=== PATIENT | female | born 1995 | race Two or more races ===

== ENCOUNTER 2020-09-05 05:43 | Day surgery (SDC) | payer OTHER ==
[2020-09-05] VITALS (14 sets, daily range): BP systolic 93–135; BP diastolic 50–88
[~2020-09-05] VITALS: Ht 162.6 cm; Wt 67.1 kg
[2020-09-05] MEDS ORDERED: TESTOSTERO100 MG/1 M IM (06:40)
[2020-09-05] MEDS ORDERED: ceFAZolin sod 2 GM in NS 55 ML IVPB ONE (07:00)
[2020-09-05] MEDS ORDERED: Bacitracin Oint 15gm Tube TOPIC ONE (07:20)
[2020-09-05] MEDS ORDERED: Lidocaine 1% 10mg/ml/Epi 0.005mg/ml 30ml vial INJ ONE (07:21)
[2020-09-05] MEDS ORDERED: Dyna-Hex 2% Top Sol 2oz TOPIC ONE (07:21)
[2020-09-05] MEDS ORDERED: Bacitracin 50000 Units Vial ONE (07:21)
[2020-09-05] MEDS ORDERED: Bupivacaine 0.25% Inj 30ml INJ ONE (07:21)
[2020-09-05] MEDS ORDERED: Muri-Lube ONE (07:21)
--- NOTE | 2020-09-05 07:22 | Anethesia Preoperative Eval ---
Anesthesia Pre-op PMH/ROS General Date of Evaluation: Sep 05, 2020 Time of Evaluation: 11:23 Anesthesiologist: Anitha ASA Score: ASA 2 Mallampati Score Class I : Soft palate, uvula, fauces, pillars visible Class II: Soft palate, uvula, fauces visible Class III: Soft palate, base of uvula visible Class IV: Only hard plate visible Mallampati Classification: Class I Surgeon: Elmira Diagnosis: Gender Dysphoria Surgical Procedure: Bilateral Mastectomy with Nipple Graft Family History: no anesthesia problems Allergies: Coded Allergies: No Known Allergies (Unverified , 09/03/20) Medications: see eMAR Patient NPO?: Yes Past Medical History Gastrointestinal/Genitourinary: Reports: GERD Anesthesia Pre-op Phys. Exam Physician Exam Last Vital Signs Date Time Temp Pulse Resp B/P (MAP) Pulse Ox O2 Delivery O2 Flow Rate FiO2 09/05/20 06:34 97.5 70 18 124/88 100 Room Air Constitutional: NAD Neurologic: CN 2-12 intact Cardiovascular: RRR Respiratory: CTA Gastrointestinal: S/NT/ND Airway Exam Mallampati Score: Class I MO: full ROM: full Teeth: intact Anesthesia Pre-op A/P Labs Urine Test Test 09/05/20 06:10 Urine HCG, Qualitative Negative (NEGATIVE) Risk Assessment & Plan Assessment: ASA 2 Plan: GA, SED, GlideScope Status Change Before Surgery: No Pre-Antibiotics Dru Gram Ancef IV Given Within 1 Hr of Incision: Yes Time Given: 07:46 Jase Welsh MD Sep 05, 2020 07:22
[2020-09-05] MEDS ORDERED: Lidocaine 1% MPF 10mg/ml 5ml ONE (07:24)
[2020-09-05] MEDS ORDERED: Sodium Chloride 10ml vial INJ ONE (07:24)
--- NOTE | 2020-09-05 07:24 | Pre-Procedure Note/Attestation ---
Pre-Procedure Note/Attestation Complete Prior to Procedure Planned Procedure: bilateral Procedure Narrative: bilateral mastectomy and nipple areola reconstruction Indications for Procedure Pre-Operative Diagnosis: gender dysphoria Attestation I attest that I discussed the nature of the procedure; its benefits; risks and complications; and alternatives (and the risks and benefits of such a lternatives), prior to the procedure, with the patient (or the patient's legal food service sales representatives). I attest that, if there was a reasonable possibility of needing a blood transfusion, the patient (or the patient's legal food service sales representatives) was given the [facility] standardized written summary, pursuant to the Jovi Omero Blood Safety Act ([place] Health and Safety Code # 1645, as amended). I attest that I re-evaluated the patient just prior to the surgery and that there has been no change in the patient's H&P, except as documented below: Jose Antonio Ku MD Sep 05, 2020 07:24
[2020-09-05] MEDS ORDERED: fentaNYL 100 mcg/2 mL IV ONE ×2 (07:25→08:54)
[2020-09-05] MEDS ORDERED: Ketamine 500mg/10ml vial ONE (07:25)
[2020-09-05] MEDS ORDERED: Lidocaine 1% Plain 30 ml INJ ONE ×2 (07:27→09:11)
[2020-09-05] MEDS ORDERED: Metoclopramide 10mg/2ml Inj IVP PRN (07:30)
[2020-09-05] MEDS ORDERED: Sterile Water Irrig 1000ml IRRIG ONE (07:30)
[2020-09-05] MEDS ORDERED: HYDROcodone/Acetamin 7.5/325 tab ORAL PRN (07:30)
[2020-09-05] MEDS ORDERED: Hydromorphone 0.5mg/0.5ml inj IVP PRN (07:30)
[2020-09-05] MEDS ORDERED: Midazolam 2mg/2ml Inj IVP PRN (07:30)
[2020-09-05] MEDS ORDERED: Labetalol 5mg/ml 20ml vial IV PRN (07:30)
[2020-09-05] MEDS ORDERED: LR 1000ml ONE (07:30)
[2020-09-05] MEDS ORDERED: LORazepam Inj 2mg/ml 1ml IV PRN (07:30)
[2020-09-05] MEDS ORDERED: Ketorolac 30mg Inj IV PRN ×2 (07:30)
[2020-09-05] MEDS ORDERED: Atropine Sulfate 0.4mg/ml inj IVP PRN (07:30)
[2020-09-05] MEDS ORDERED: DiphenhydrAMINE 50mg/ml Inj IVP PRN (07:30)
[2020-09-05] MEDS ORDERED: HYDROcodone/Acetamin 5/325 tab ORAL PRN ×2 (07:30→11:15)
[2020-09-05] MEDS ORDERED: Meperidine 25mg/1ml Inj (FOR RIGORS ONLY) IV PRN (07:30)
[2020-09-05] MEDS ORDERED: NS Irrig 1000ml ONE (07:30)
[2020-09-05] MEDS ORDERED: Rocuronium Bromide 50mg/5ml Inj IV ONE (07:30)
[2020-09-05] MEDS ORDERED: oxyCODONE HCL/Acetaminophen 5/325mg ORAL PRN (07:30)
[2020-09-05] MEDS ORDERED: LR 1000ml 1,000 ML IVLG SCH (07:30)
[2020-09-05] MEDS ORDERED: Acetaminophen (Non formulary) 100 ML IV ONE (07:30)
[2020-09-05] MEDS ORDERED: propofoL 1,000mg/100ml IV ONE (07:30)
[2020-09-05] MEDS ORDERED: fentaNYL 100 mcg/2 mL IV PRN (07:30)
--- NOTE | 2020-09-05 11:04 | Discharge Instructions ---
Discharge Instructions Discharge Instructions Follow up with: Dr. Ku 09/11/20 Diet: regular Resume Normal Activity?: Yes - no lifting anything heavier than 10 lbs Activity: ambulate For Surgical Patients Dressing Care: keep dry and clean May shower: No - sponge bathe only For Congestive Heart Failure Reminder Report to your physician any weight gain of 5 pounds or more in one week. Jose Antonio Ku MD Sep 05, 2020 11:04
--- NOTE | 2020-09-05 11:04 | Operative Note - PDOC ---
Operative Note Operative Note Date of Operation/Procedure: Sep 05, 2020 Pre-op Diagnosis: gender dysphoria Procedure: bilateral mastectomy and nipple areola reconstruction Post-op Diagnosis: same as pre-op Surgeon: Carlie Anesthesiologist: Dennis Anesthesia: general Specimen: yes Complications: none Condition: stable Estimated Blood Loss: volume - 50 cc Drains: MAGEN Implant(s) used?: No Jose Antonio Ku MD Sep 05, 2020 11:04
--- NOTE | 2020-09-05 11:11 | Immediate Post-Op Evaluation ---
Immediate Post-Op Evalulation Immediate Post-Op Evalulation Procedure: Bilateral Mastectomy with Nipple Graft Date of Evaluation: Sep 05, 2020 Time of Evaluation: 11:23 IV Fluids: 1500 LR Blood Products: 0 Estimated Blood Loss: 30 Urinary Output: 0 Blood Pressure Systolic: 99 Blood Pressure Diastolic: 51 Pulse Rate: 79 Respiratory Rate: 16 O2 Sat by Pulse Oximetry: 99 Temperature (Fahrenheit): 97.8 Pain Score (1-10): 2 Nausea: No Vomiting: No Complications 0 Patient Status: awake, reacts, patent, extubated, none Hydration Status: adequate Dru Gram Ancef IV Given Within 1 Hr of Incision: Yes Time Given: 07:46 Jase Welsh MD Sep 05, 2020 11:11
--- NOTE | 2020-09-05 11:12 | 48 Hour Post Anesthesia Eval ---
Post Anesthesia Evaluation Procedure: Bilateral Mastectomy with Nipple Graft Date of Evaluation: Sep 05, 2020 Time of Evaluation: 13:32 Blood Pressure Systolic: 123 0: 81 Pulse Rate: 63 Respiratory Rate: 18 Temperature (Fahrenheit): 98 O2 Sat by Pulse Oximetry: 99 Airway: patent Nausea: No Vomiting: No Pain Intensity: 2 Hydration Status: adequate Cardiopulmonary Status: Stable Mental Status/LOC: patient returned to baseline Follow-up Care/Observations: 0 Post-Anesthesia Complications: 0 Follow-up care needed: ready to discharge Jase Welsh MD Sep 05, 2020 11:12
[2020-09-05] MEDS ORDERED: HYDROmorphone 1mg/ml Carpuject SUBQ PRN (11:15)
[2020-09-05] MEDS ORDERED: D5 1/2NS 1,000 ML IV SCH (11:15)
[2020-09-05] MEDS ORDERED: Tylenol #3 tab (300mg/30mg) ORAL PRN (11:15)
--- NOTE | 2020-09-05 12:30 | Operative Note - Dictated ---
DATE OF OPERATION: 09/05/2020 PREOPERATIVE DIAGNOSIS: Gender dysphoria. POSTOPERATIVE DIAGNOSIS: Gender dysphoria. PROCEDURE: 1. Bilateral mastectomy. 2. Bilateral nipple-areola reconstruction utilizing full-thickness grafts (each graft 2.5 x 2.5 cm). SURGEON: Jose Antonio Ku MD. ANESTHESIA: General. ESTIMATED BLOOD LOSS: 50 mL. SPECIMENS: 1. Right breast. 2. Left breast. DRAINS: A 15-Kazakh Erich x2. COMPLICATIONS: None. CONDITION: To recovery room stable. INDICATION FOR PROCEDURE: This is a very pleasant 24-year-old trans male who desires Top surgery as part of his transition. He has the appropriate letter for recommendation from his therapist and meets all WPATH criteria for Top surgery. I have discussed the risks, benefits, and alternatives to the procedure with him including but not limited to, bleeding, infection, scarring, nerve injury, asymmetry, contour deformity, hematoma, seroma, loss of nipple sensation, loss of nipple graft and need for additional surgery including revisions. I discussed the orientation of the incisions and the unpredictable nature of scarring. No guarantees were made regarding the outcome. All of his questions have been answered to the best of my ability. He verbalized understanding with everything that we discussed and wishes to proceed. DESCRIPTION OF PROCEDURE: The patient was identified in the preoperative holding area and marked in the standing position. He was then brought to the operating room where he was placed in the supine position on the operating room table with his arms extended on arm boards. All bony prominences were adequately padded. Sequential compression devices were placed and intravenous antibiotics were administered. After induction of anesthesia, the patient's chest was prepped and draped in sterile fashion. Starting on the left breast first, a redding measuring 2.5 cm in diameter was drawn centered around the nipple. Next, the subdermal plane within areolar marking was infiltrated with 3 mL of 1% lidocaine with epinephrine. I then used a 15-blade scalpel to incise the areolar marking and proceeded to harvest a full-thickness nipple areola graft. The graft was subsequently defatted using curved iris scissors, wrapped in wet gauze and placed on the back table. I then made the inframammary fold incision using a 10-blade scalpel and dissected down to the level of pectoralis major fascia. Afterwards I made the superior breast incision and dissected down to the level of Andre's fascia. Skin Rakes were used to retract the skin and a plane of dissection was created superiorly between the subcutaneous tissues and breast parenchyma. Afterward breast was then elevated off of the pectoralis major fascia proceeding from a medial to lateral direction. The specimen was passed off the table. Hemostasis was achieved and the wound was irrigated with saline, 4 mL of Tisseel was placed throughout the wound cavity. A 15-Kazakh Erich drain was then placed within the wound and brought out through a separate stab incision and secured using 2-0 silk suture. Skin mariella were then used to temporarily reapproximate the skin. I then shifted my attention to the contralateral side of the chest where the identical procedure was performed. The patient was then sat up on the operating room table to assess for symmetry and it appeared that he had very reasonable symmetry between the two sides of his chest. I then used a marking pen to draw the new location of the nipple areolar complex on each side of the chest and these markings were confirmed with direct measurements. The patient was then placed back in the supine position. On each side of the chest, the skin mariella were removed and wound closure was performed using interrupted 0 Vicryl suture for the Andre's fascia layer followed by interrupted 3-0 PDS suture for the deep dermal layer and then a running 3-0 Monocryl subcuticular suture to reapproximate the skin. At this point, I then resumed with the nipple areola reconstruction portion of the procedure. Starting on the left chest first, the francisco javier-areolar marking was incised using a 15-blade scalpel. The intervening skin within the marking was then de-epithelialized. I then brought out the full-thickness nipple areola graft and proceeded to inset it into the de-epithelialized area using a running 5-0 fast-absorbing suture. Afterwards several 2-0 silk suture ties were placed around the periphery of the graft. The skin graft bolster was fashioned and then secured into place directly on top of the nipple areola graft using the 2-0 silk sutures ties. I then shifted my attention to the contralateral side of the chest where the identical procedure was performed. Next 10 mL of 0.25% plain Marcaine were then injected into each of the chest incisions. Steri-Strips were placed on top of the surgical incisions followed by sterile dressings and the patient was then placed into a compressive chest wrap. He tolerated the procedure well and was sent to the recovery room in stable condition. All instrument, sharp, and sponge counts were correct at the conclusion of the case. Jose Antonio Ku M.D. DR: La JOB#: [id number] CC:
== END 2020-09-05 14:20 | disposition home or self-care (01) ==
LOC: SUR 05:43
DX: F64.9 Gender identity disorder, unspecified (principal); K21.9 Gastro-esophageal reflux disease without esophagitis
CPT/HCPCS: 19303; 19350; 81025; 94003; J0131; J0690; J1100; J1885; J2001; J2250; J2405; J2704; J3010; J3490; J7120; U0002; 94150